=== PATIENT | male | born 1995 | race Caucasian/White ===

== ENCOUNTER 2018-09-18 01:41 | Emergency (ER) | payer BC, OTHER ==
--- NOTE | 2018-09-18 02:00 | EDM.PDOC ---
ED HPI GENERAL MEDICAL PROBLEM - General Chief Complaint: Lower Extremity Injury/Pain Stated Complaint: ankle pain/swelling Time Seen by Provider: 09/18/18 01:55 Source of Information: Reports: Patient, Old Records ([facility] chart/EMR) History Limitations: Reports: No Limitations - History of Present Illness INITIAL COMMENTS - FREE TEXT/NARRATIVE: The patient was brought to the emergency room via transport vehicle from [facility] for evaluation of a Workmen's Compensation injury, which occurred at about 00: 30 a.m. this morning. The patient was jumping off of a [employer]cat when he landed on the assembly track twisting his left ankle, however no other significant fall. Ice packs were placed on the scene, however no other treatment prior to arrival. Patient has had difficulty bearing weight with maximal pain of 8/10. Review of our medical records indicates a distant lateral ankle sprain on . No history of paresthesias, knee pain, neck pain, back pain, neurological deficits, or other complaints or injuries. No recent history of abdominal pain, heartburn, nausea, diarrhea, melena, gross hematochezia, or any food intolerance , including fatty foods, etc.. The patient also denies any recent fever, cough, wheezing, dyspnea, etc.. Onset: Today, Sudden Onset Date: 09/18/18 Onset Time: 00:30 Duration: Constant Location: Reports: Lower Extremity, Left. Denies: Head, Face, Neck, Chest, Abdomen, Back, Pelvis, Upper Extremity, Left, Upper Extremity, Right, Lower Extremity, Right, Radiates to Quality: Reports: Ache, Same as Previous Episode, Throbbing Severity: Moderate Improves with: Reports: Rest Worsens with: Reports: Movement Context: Reports: Trauma (As above) Associated Symptoms: Reports: No Other Symptoms. Denies: Chest Pain, Cough, Diaphoresis, Fever/Chills, Headaches, Loss of Appetite, Malaise, Nausea/Vomiting , Seizure, Shortness of Breath, Syncope, Weakness Treatments [employer] AP[employer]ENTICE: Reports: Cold Therapy Left Ankle Pain Score (Numeric/FACES): 8 - Related Data Allergies Allergy/AdvReac Type Severity Reaction Status Date / Time No Known Allergies Allergy Verified 09/18/18 01:50 Home Meds: Home Meds Acetaminophen [Tylenol] 650 mg PO Q4HR PRN 09/18/18 [History] Ibuprofen [Motrin] 400 - 600 mg PO Q6H PRN 09/18/18 [History] Past Medical History HEENT History: Reports: None, Impaired Vision, Other (See Below). Denies: Allergic Rhinitis, Hard of Hearing, Retinal Detachment Other HEENT History: Patient wears glasses. Cardiovascular History: Reports: None. Denies: Afib, Aneurysm, Arrhythmia, Blood Clots/VTE/DVT, Heart Murmur, High Cholesterol, Hypertension, Syncope Respiratory History: Reports: Asthma. Denies: Intubation, Difficult, Intubation , Previous, PE, Pneumothorax Gastrointestinal History: Reports: GERD. Denies: Celiac Disease, Gastritis, GI Bleed, Hepatitis, Inflammatory Bowel Disease, Irritable Bowel Syndrome, Jaundice , Pancreatitis Genitourinary History: Reports: None. Denies: Acute Renal Failure, Chronic Renal Insuffiency, Renal Calculus, Retention, Urinary, STD, Urinary Incontinence , UTI, Recurrent Musculoskeletal History: Reports: Arthritis, Back Pain, Chronic, Fracture, Osteoarthritis, Other (See Below). Denies: Gout, Neck Pain, Chronic, RA, SLE Other Musculoskeletal History: Right proximal radial fracture on 12/03/06. Right wrist fracture on 06/29/07. Left ankle sprain on 08/12/03. Neurological History: Reports: Headaches, Chronic. Denies: Cerebral Aneurysms, Concussion, Head Trauma, Migraines, Seizure Psychiatric History: Reports: ADD, Anxiety, Depression, Other (See Below). Denies: Abuse, Victim of, ADHD, Addiction, Psych Hospitalization(s), PTSD, Suicide Attempt, Suicidal Ideation Other Psychiatric History: No current medical therapy required. Endocrine/Metabolic History: Reports: None. Denies: Diabetes, Type I, Diabetes , Type II, Diabetes Mellitus, Type 3c, Hypothyroidism, IDDM Hematologic History: Reports: None. Denies: Anemia - Past Surgical History Head Surgeries/Procedures: Reports: None HEENT Surgical History: Reports: Oral Surgery, Other (See Below). Denies: Adenoidectomy, Eye Surgery, Laser Surgery, LASIK, Myringotomy w Tube(s), Naso- Sinus Surgery, Tonsillectomy Other HEENT Surgeries/Procedures: [place] teeth extraction 4 at age 15. GI Surgical History: Reports: None. Denies: Appendectomy, Cholecystectomy, Hernia, Abdominal, Hernia, Inguinal, Hernia Repair/Other Male Surgical History: Reports: Circumcision, Other (See Below) Other Male Surgeries/Procedures: Circumcision as an . - Past Imaging History Past Imaging History: Reports: CAT Scan (CT of the head on 09/08/17.) Social & Family History - Tobacco Use Smoking Status *Q: Never Smoker Tobacco Use Within Last Twelve Months: No Used Tobacco, but Quit: No Smoking Cessation Information Provided To Patient: No Second Hand Smoke Exposure: No Second Hand Smoke Education Provided: No - Caffeine Use Caffeine Use: Reports: Soda (1 L per day), Tea (40 ounces per day). Denies: Coffee, Energy Drinks - Alcohol Use Alcohol Use History: Yes Days Per Week of Alcohol Use: 0 Number of Drinks Per Day: 2 Number of Drinks Per Day Comment: Usually mixed drinks once per year. No previous DWIs, problems with alcohol abuse, etc. Total Drinks Per Week: 0 Alcohol Use in Last Twelve Months: Yes - Recreational Drug Use Recreational Drug Use: Yes Drug Use in Last 12 Months: No Recreational Drug Type: Reports: Marijuana/Hashish (Experimental at age 21). Denies: Amphetamines (Speed), Cocaine, Heroin, Inhalants (Glues, Solvents, Aerosols), LSD (Acid), Methamphetamine, Morphine, Oxycodone - Living Situation & Occupation Living situation: Reports: Single (No children), Alone Occupation: Employed ([employer]) Review of Systems - Review of Systems Review Of Systems: ROS reveals no pertinent complaints other than HPI. ED EXAM, GENERAL - Physical Exam Exam: See Below Exam Limited By: No Limitations General Appearance: Alert, WD/WN, No Apparent Distress Head: Atraumatic, Normocephalic. No: Facial Swelling, Facial Tenderness, Sinus Tenderness Neck: Normal Inspection, Supple, Non-Tender, Full Range of Motion. No: Lymphadenopathy (L), Lymphadenopathy (R), Thyromegaly Respiratory/Chest: No Respiratory Distress, Lungs Clear, Normal Breath Sounds, No Accessory Muscle Use, Chest Non-Tender. No: Pleural Rub, Retractions Cardiovascular: Normal Peripheral Pulses, Regular Rate, Rhythm, No Edema, No Gallop, No JVD, No Murmur, No Rub. No: Gallop/S3, Gallop/S4, Friction Rub Peripheral Pulses: 2+: Radial (L), Radial (R), Dorsalis Pedis (L) GI/Abdominal: Normal Bowel Sounds, Soft, Non-Tender, No Organomegaly, No Distention, No Abnormal Bruit, No Mass, Pelvis Stable. No: Guarding (Male) Exam: Deferred Rectal (Males) Exam: Deferred Back Exam: Normal Inspection, Full Range of Motion. No: CVA Tenderness (L), CVA Tenderness (R), Muscle Spasm Extremities: No Pedal Edema, Normal Capillary Refill, Joint Swelling (Moderate left lateral malleolar swelling with moderate localized palpation pain over no joint instability or crepitation with negative anterior drawers), Leg Pain ( Left ankle), Limited Range of Motion (Secondary to pain), Other (No sign of left knee tenderness or injury. No tenderness in the left foot including metatarsals, etc.). No: Gregory's Sign, Redness Neurological: Alert, Oriented, CN II-XII Intact, Normal Cognition, Normal Gait, No Motor/Sensory Deficits Psychiatric: Normal Affect, Normal Mood Skin Exam: Warm, Dry, Intact, Normal Color, No Rash. No: Diaphoretic, Ecchymosis, Wound/Incision Lymphatic: No Adenopathy ED TRAUMA EXTREMITY PROCEDURES - Splinting Left Lower Extremity Splint Site: Left ankle Pre-Procedure NV Status: Normal Post-Procedure NV Status: Normal Splint Material: Air Splint, Other (4 inch John wrap) Splint Design: Stirrup Applied & Form Fitted By: Nurse Provider Post-Splint Application NV Check: NV Status Normal, Good Position Complications: No Course - Vital Signs Last Recorded V/S: Last Vital Signs Temp 36.8 C 09/18/18 01:44 Pulse 99 09/18/18 01:57 Resp 20 09/18/18 01:44 BP 145/83 H 09/18/18 01:57 Pulse Ox 100 09/18/18 01:44 Vital Signs - 24 hr 09/18/18 09/18/18 01:44 01:57 Temperature [ 36.8 C Oral] Pulse, 101 H 99 Peripheral [ Pulse Oximetry] Respiratory 20 Rate Blood Pressure 133/83 145/83 H [Right Upper Arm] O2 Sat by Pulse 100 Oximetry - Orders/Labs/Meds Orders: Active Orders 24 hr Category Date Time Status Ankle Min 3V Lt [CR] Stat Exams 09/18/18 02:01 Taken Durable Medical Equipment for Discharge [DME for Oth 09/18/18 02:29 Ordered Discharge] [COMM] Routine Durable Medical Equipment for Discharge [DME for Ot 09/18/18 02:30 Ordered Discharge] [COMM] Routine Durable Medical Equipment for Discharge [DME for Ot 09/18/18 02:30 Ordered Discharge] [COMM] Routine Obtain Past Medical Record [OM.PC] Routine [facility] 09/18/18 02:00 Active Labs: None Meds: None - Radiology Interpretation Free Text/Narrative:: X-rays of the left ankle, 3 views, shows no evidence of fracture, dislocation, etc. Moderate lateral effusion noted. Departure - Departure Time of Disposition: 02:55 Disposition: Home, Self-Care 01 Condition: Good Clinical Impression: Peptic reflux disease, Mixed anxiety depressive disorder Left ankle sprain Qualifiers: Encounter type: initial encounter Involved ligament of ankle: tibiofibular ligament Qualified Code(s): S93.432A - Sprain of tibiofibular ligament of left ankle, initial encounter Asthma Qualifiers: Asthma severity: mild Asthma persistence: intermittent Asthma complication type : uncomplicated Qualified Code(s): J45.20 - Mild intermittent asthma, uncomplicated Osteoarthritis Qualifiers: Osteoarthritis location: multiple joints Osteoarthritis type: primary Qualified Code(s): M15.0 - Primary generalized (osteo)arthritis - Discharge Information *PRESCRIPTION DRUG MONITORING PROGRAM REVIEWED*: Not Applicable *COPY OF PRESCRIPTION DRUG MONITORING REPORT IN PATIENT LESLIE: Not Applicable Instructions: Crutch Use, Adult, [id number], Ankle Sprain, [id number] Referrals: Mariah Lopez PA [Primary Care Provider] - Forms: ED Department Discharge Additional Instructions: 1. Followup with your regular provider in 7 days as directed. Bring these discharge instructions with you to that visit. 2. Decrease caffeine use as discussed 3. Ice packs and leg elevation as discussed. 4. Use crutches, John wrap, and air ankle splint at all times with exception of bathing until otherwise directed by your provider 5. Limited weightbearing of left ankle/foot as discussed 6. Immediately after this visit verify that your cellular telephone's voicemail has been activated and is empty. Also verify that your home telephone 's answering machine is operating properly and has space to receive messages. Note that it is sometimes necessary for us to be able to contact you at a later date to discuss your medical care. 7. Please remember that we are ALWAYS here for you and want to answer any questions you may have. Feel free to call the hospital any time and we call you back SUMA. - Problem List & Annotations (1) Left ankle sprain SNOMED Code(s): 91573943, 44070960780463288 Code(s): S93.402A - SPRAIN OF UNSPECIFIED LIGAMENT OF LEFT ANKLE, INIT ENCNTR Status: Acute Priority: High Onset Date: 09/18/18 Annotation/ Comment:: Activity restrictions as discussed. [employer] work excuse and Workmen's Compensation forms were completed. Close follow-up by regular provider. Qualifiers: Encounter type: initial encounter Involved ligament of ankle: tibiofibular ligament Qualified Code(s): S93.432A - Sprain of tibiofibular ligament of left ankle, initial encounter (2) Asthma SNOMED Code(s): 817523184 Code(s): J45.909 - UNSPECIFIED ASTHMA, UNCOMPLICATED Status: Chronic Priority: Medium Annotation/Comment:: No recent fever or bronchitic type symptoms. No current medical therapy required. Qualifiers: Asthma severity: mild Asthma persistence: intermittent Asthma complication type: uncomplicated Qualified Code(s): J45.20 - Mild intermittent asthma, uncomplicated (3) Mixed anxiety depressive disorder SNOMED Code(s): 640632575 Code(s): F41.8 - OTHER SPECIFIED ANXIETY DISORDERS Status: Chronic Priority: Medium Annotation/Comment:: Stable by history with no current medical therapy required. Note previous history of ADD and significant caffeine use. (4) Osteoarthritis SNOMED Code(s): 530310930 Code(s): M19.90 - UNSPECIFIED OSTEOARTHRITIS, UNSPECIFIED SITE Status: Chronic Priority: Medium Annotation/Comment:: Stable by history Qualifiers: Osteoarthritis location: multiple joints Osteoarthritis type: primary Qualified Code(s): M15.0 - Primary generalized (osteo)arthritis (5) Peptic reflux disease SNOMED Code(s): 944037605 Code(s): K21.9 - GASTRO-ESOPHAGEAL REFLUX DISEASE WITHOUT ESOPHAGITIS Status: Chronic Priority: Medium Annotation/Comment:: Stable by history with no current medical therapy required. - Problem List Review Problem List Initiated/Reviewed/Updated: Yes - My Orders Last 24 Hours: My Active Orders 09/18/18 02:00 Obtain Past Medical Record [OM.PC] Routine 09/18/18 02:01 Ankle Min 3V Lt [CR] Stat 09/18/18 02:29 Durable Medical Equipment for Discharge [DME for Discharge] [COMM] Routine 09/18/18 02:30 Durable Medical Equipment for Discharge [DME for Discharge] [COMM] Routine Durable Medical Equipment for Discharge [DME for Discharge] [COMM] Routine - Assessment/Plan Last 24 Hours: My Active Orders 09/18/18 02:00 Obtain Past Medical Record [OM.PC] Routine 09/18/18 02:01 Ankle Min 3V Lt [CR] Stat 09/18/18 02:29 Durable Medical Equipment for Discharge [DME for Discharge] [COMM] Routine 09/18/18 02:30 Durable Medical Equipment for Discharge [DME for Discharge] [COMM] Routine Durable Medical Equipment for Discharge [DME for Discharge] [COMM] Routine Assessment:: As above Plan: As above. Extensive precautions were given to the patient, who is in agreement with the treatment plan. See Patient Instructions for further treatment and plan.
== END 2018-09-18 02:55 | disposition home or self-care (01) ==
LOC: LL.ED 01:41
DX: S93.432A Sprain of tibiofibular ligament of left ankle, initial encounter (principal); J45.20 Mild intermittent asthma, uncomplicated; M15.0 Primary generalized (osteo)arthritis; F41.8 Other specified anxiety disorders; K21.9 Gastro-esophageal reflux disease without esophagitis; X50.9XXA Other and unspecified overexertion or strenuous movements or postures, initial encounter; Y99.0 Civilian activity done for income or pay
CPT/HCPCS: 73610-LT; 99283-25

== ENCOUNTER 2020-10-13 05:54 | Emergency (ER) | payer BC, OTHER ==
[2020-10-13] MEDS: Ketorolac 30 MG/ML SDV IM ONE (06:57)
--- NOTE | 2020-10-13 07:20 | EDM.PDOC ---
ED HPI GENERAL MEDICAL PROBLEM - General Chief Complaint: Lower Extremity Injury/Pain Stated Complaint: right foot pain Time Seen by Provider: 10/13/20 06:25 Source of Information: Reports: Patient History Limitations: Reports: No Limitations - History of Present Illness INITIAL COMMENTS - FREE TEXT/NARRATIVE: Pt. presents to ER with complaints of R anterolateral foot/ankle pain. Pt. denies any injury to this area, and states that the discomfort came on while he was at rest. He denies any fever or chills. No redness. Pt. has a family history of gout (father). Pt. states that he is able to bear weight, but with increased discomfort. Denies any numbness/tingling in the distal portion of the extremity. He denies ever having discomfort like this in the past. Onset Date: 10/12/20 Location: Reports: Lower Extremity, Right Quality: Reports: Sharp - Related Data Allergies Allergy/AdvReac Type Severity Reaction Status Date / Time No Known Allergies Allergy Verified 09/18/18 01:50 Home Meds: Home Meds Acetaminophen [Tylenol] 650 mg PO Q4HR PRN 09/18/18 [History] Ibuprofen [Motrin] 400 - 600 mg PO Q6H PRN 09/18/18 [History] Past Medical History HEENT History: Reports: None, Impaired Vision, Other (See Below) Other HEENT History: Patient wears glasses. Cardiovascular History: Reports: None Respiratory History: Reports: Asthma Gastrointestinal History: Reports: GERD Genitourinary History: Reports: None Musculoskeletal History: Reports: Arthritis, Back Pain, Chronic, Fracture, Osteoarthritis, Other (See Below) Other Musculoskeletal History: Right proximal radial fracture on 12/03/06. Right wrist fracture on 06/29/07. Left ankle sprain on 08/12/03. Neurological History: Reports: Headaches, Chronic Psychiatric History: Reports: ADD, Anxiety, Depression, Other (See Below) Other Psychiatric History: No current medical therapy required. Endocrine/Metabolic History: Reports: None Hematologic History: Reports: None - Past Surgical History Head Surgeries/Procedures: Reports: None HEENT Surgical History: Reports: Oral Surgery, Other (See Below) Other HEENT Surgeries/Procedures: [place] teeth extraction 4 at age 15. GI Surgical History: Reports: None Male Surgical History: Reports: Circumcision, Other (See Below) Other Male Surgeries/Procedures: Circumcision as an . - Past Imaging History Past Imaging History: Reports: CAT Scan (CT of the head on 09/08/17.) Social & Family History - Caffeine Use Caffeine Use: Reports: Soda (1 L per day), Tea (40 ounces per day). Denies: Coffee, Energy Drinks - Living Situation & Occupation Living situation: Reports: Single (No children), Alone Occupation: Employed ([employer]) Review of Systems - Review of Systems Review Of Systems: Comprehensive ROS is negative, except as noted in HPI. ED EXAM, GENERAL - Physical Exam Exam: See Below Exam Limited By: No Limitations General Appearance: Alert, WD/WN, No Apparent Distress Extremities: Normal Inspection, Limited Range of Motion, Other (Pain on palpation of R anterolateral ankle area. No redness noted. CMS intact.). No: Redness Course - Vital Signs Last Recorded V/S: Last Vital Signs Temp 36.2 C 10/13/20 05:56 Pulse 118 H 10/13/20 05:56 Resp 14 10/13/20 05:56 BP 140/74 10/13/20 05:56 Pulse Ox 100 10/13/20 05:56 - Orders/Labs/Meds Orders: Active Orders 24 hr Category Date Time Status Foot Comp Min 3V Rt [CR] Stat Exams 10/13/20 05:59 Ordered Labs: Laboratory Tests 10/13/20 Range/Units 06:15 Uric Acid 8.1 H (2.6-7.2) mg/dL C-Reactive Protein < 0.2 (<=0.9) mg/dL Meds: Medications Discontinued Medications Generic Name Dose Route Start Last Admin Trade Name Lester PRN Reason Stop Dose Admin Ketorolac Tromethamine 30 mg 10/13/20 06:44 10/13/20 06:57 Ketorolac 30 Mg/Ml Sdv IM 10/13/20 06:45 30 mg ONETIME ONE Administration - Radiology Interpretation Free Text/Narrative:: Radiographs of R ankle obtained. No obvious acute injury noted. Departure - Departure Time of Disposition: 07:10 Disposition: Home, Self-Care 01 Clinical Impression: Gout - Discharge Information Instructions: Low-Purine Eating Plan, Indomethacin Oral Capsules, Prednisone tablets Referrals: PCP,None [Primary Care Provider] - Forms: ED Department Discharge Additional Instructions: Off work until the 15th You can use crutches if you need help getting around. This should get better soon with medication. Drink plenty of water. Prednisone 20mg 3 tabs every day for 7 days Indomethacin 50mg 1 tab 3 times daily as needed for pain. Take for a day or so after pain goes away Minimize consumption of meat, alcohol, and other foods that cause gout (see attached). recheck in clinic in 10 days. Sepsis Event Note (ED) - Evaluation Sepsis Screening Result: No Definite Risk - Focused Exam Vital Signs: Vital Signs Temp Pulse Resp BP Pulse Ox 10/13/20 05:56 36.2 C 118 H 14 140/74 100 - My Orders Last 24 Hours: My Active Orders 10/13/20 05:59 Foot Comp Min 3V Rt [CR] Stat - Assessment/Plan Last 24 Hours: My Active Orders 10/13/20 05:59 Foot Comp Min 3V Rt [CR] Stat Plan: Off work until the 15th You can use crutches if you need help getting around. This should get better soon with medication. Drink plenty of water. Prednisone 20mg 3 tabs every day for 7 days Indomethacin 50mg 1 tab 3 times daily as needed for pain. Take for a day or so after pain goes away Minimize consumption of meat, alcohol, and other foods that cause gout (see attached). recheck in clinic in 10 days.
== END 2020-10-13 07:05 | disposition home or self-care (01) ==
LOC: LL.ED 05:54
DX: M10.9 Gout, unspecified (principal)
CPT/HCPCS: 36415; 73630-RT; 84550; 86140; 96372; 99283; 99283-25; J1885

== ENCOUNTER 2022-01-02 22:35 | Emergency (ER) | payer BC ==
[2022-01-02] MEDS ORDERED: Sodium Chloride 0.9% 1,000 ML IV ONE (23:10)
[2022-01-02 23:28] LABS: ANION GAP 16.3 meq/L (7-15)
[2022-01-02 23:40] LABS: CORONAVIRUS COVID-19 NAA POSITIVE (NEGATIVE); RESPIRATORY SYNCYTIAL VIR NAA NEGATIVE (NEGATIVE)
[2022-01-02] MEDS ORDERED: Ketorolac 30 MG/ML SDV IVPUSH ONE (23:56)
== END 2022-01-03 00:31 | disposition home or self-care (01) ==
LOC: LL.ED 22:35
DX: U07.1 COVID-19 (principal)
CPT/HCPCS: 0241U; 36415; 70450; 80053; 84484; 85025; 86140; 93005; 93010; 96361; 96374; 99284; J1885; J7030

== ENCOUNTER 2022-01-19 19:05 | Emergency (ER) | payer BC ==
[2022-01-19] MEDS: methylPREDNISolone Sodium Succinate 40 MG/1 ML SDV IM ONE (20:21)
[2022-01-19] MEDS: Ketorolac 30 MG/ML SDV IM ONE (20:21)
[2022-01-19] MEDS: Colchicine 0.6 MG Tab PO ONE ×3 (20:23→21:25)
== END 2022-01-19 20:50 | disposition home or self-care (01) ==
LOC: LL.ED 19:05
DX: M10.9 Gout, unspecified (principal); Z79.899 Other long term (current) drug therapy
CPT/HCPCS: 96372; 99283; A9270-GY; J1885; J2920

== ENCOUNTER 2022-06-18 17:29 | Emergency (ER) | payer BC | END 2022-06-18 19:20 | disposition home or self-care (01) | LOC: LL.ED 17:29 | DX: M54.50 Low back pain, unspecified (principal) | CPT/HCPCS: 72100; 72220; 99283; 99284 ==